=== PATIENT | female | born 1960 | race Caucasian/White ===

== ENCOUNTER 2017-10-22 09:27 | Outpatient (CLI) | payer OTHER | END 2017-10-22 09:28 | disposition home or self-care (01) | LOC: BICMAMMO 09:27 | PROVIDERS: ATTEND Family Medicine | DX: Z12.31 Encounter for screening mammogram for malignant neoplasm of breast (principal) | CPT/HCPCS: 77063; 77067 ==

== ENCOUNTER 2018-03-20 08:18 | Outpatient (CLI) | payer OTHER ==
--- NOTE | 2018-03-20 16:18 | CT ---
CT NECK WITH AND WITHOUT CONTRAST CT PARATHYROID SCAN 03/20/18 CLINICAL HISTORY: Hyperparathyroidism. No prior imaging comparisons are available. FINDINGS: There is no avidly enhancing parathyroid soft tissue nodule confirmed. There are scattered tiny nodul ar densities, regionally, favoring lymph nodes. The thyroid gland is atrophic. Coronary artery calcium is incidentally noted. There are radiopaque densities at the right hilum part ially visualized. There is incidental note of fluid density within a portion of the esophagus which m ay be related to dysmotility or reflux. Correlate clinically. If necessary, followup with barium swal low may prove useful. IMPRESSION: No CT evidence to confirm parathyroid adenoma. Follow-up Nuclear Medicine parathyroid scan may prove useful. POS: GHADA
== END 2018-03-20 08:19 | disposition home or self-care (01) ==
LOC: CT 08:18
PROVIDERS: ATTEND Specialist
DX: E21.3 Hyperparathyroidism, unspecified (principal)
CPT/HCPCS: 70492; 82565

== ENCOUNTER 2018-04-01 11:33 | Outpatient (CLI) | payer OTHER ==
--- NOTE | 2018-04-01 16:20 | NM ---
RADIONUCLIDE PARATHYROID SCAN WITH PLANAR AND SPECT CT: 04/01/18 HISTORY: Hyperparathyroidism, unspecified. RADIOPHARMACEUTICAL: 25.7 millicuries of technetium 99m - Sestamibi injected intravenously. CORRELATION: CT neck of 03/20/18. FINDINGS: There is physiologic uptake in the thyroid gland and salivary glands. No abnormal foci of tracer loca lization are seen in the neck or chest. IMPRESSION: No scintigraphic evidence of parathyroid adenoma. POS: GHADA
== END 2018-04-01 11:34 | disposition home or self-care (01) ==
LOC: NM 11:33
PROVIDERS: ATTEND Specialist
DX: E21.3 Hyperparathyroidism, unspecified (principal)
CPT/HCPCS: 78072; A9500

== ENCOUNTER 2018-05-27 13:46 | Day surgery (SDC) | payer OTHER ==
[2018-05-27] MEDS ORDERED: Denosumab 60 MG/ML SQ SCH (14:00)
[2018-05-27 14:11] VITALS: BP 145/81; TEMP 98.2
== END 2018-05-27 15:10 | disposition home or self-care (01) ==
LOC: ONC/OP 13:46
PROVIDERS: ATTEND Nurse Practitioner
DX: M81.0 Age-related osteoporosis without current pathological fracture (principal)
CPT/HCPCS: 96372; J0897

== ENCOUNTER 2018-10-23 09:36 | Outpatient (CLI) | payer OTHER | END 2018-10-23 09:37 | disposition home or self-care (01) | LOC: BICMAMMO 09:36 | PROVIDERS: ATTEND Nurse Practitioner | DX: Z12.31 Encounter for screening mammogram for malignant neoplasm of breast (principal) | CPT/HCPCS: 77063; 77067 ==

== ENCOUNTER 2018-11-27 01:13 | Day surgery (SDC) | payer OTHER ==
[2018-11-27] MEDS ORDERED: Denosumab 60 MG/ML SQ SCH (06:00)
[2018-11-27 13:09] VITALS: BP 158/76; TEMP 98.4
== END 2018-11-27 15:56 | disposition home or self-care (01) ==
LOC: ONC/OP 01:13
PROVIDERS: ATTEND Nurse Practitioner
DX: M81.0 Age-related osteoporosis without current pathological fracture (principal); Z88.1 Allergy status to other antibiotic agents; Z88.5 Allergy status to narcotic agent; Z91.018 Allergy to other foods; Z91.040 Latex allergy status
CPT/HCPCS: 96372; J0897

== ENCOUNTER 2019-05-13 07:37 | Outpatient (CLI) | payer OTHER ==
--- NOTE | 2019-05-13 11:27 | NM ---
Nuclear medicine parathyroid scintigraphy, suspect, and SPECT-CT: DATE: 05/13/2019 HISTORY: 58-year-old female with hyperparathyroidism, elevated serum PTH, but normal serum calcium. TECHNIQUE: IV injection of 26.4 mCi of technetium 99m-sestamibi.. Planar scintigraphy in 3 views of head and neck and upper chest. Axial, coronal, and sagittal SPECT of head and neck and upper chest. Noncontrast CT for anatomical localization of head and neck and upper chest. SPECT-CT fusion performed. FINDINGS: There is physiologic uptake in the parotid and submandibular glands. There is no uptake in the thyroi d bed. Thyroid gland is atrophic. No parathyroid adenoma is identified. IMPRESSION: 1. Atrophic thyroid gland. 2. No parathyroid adenoma identified.
== END 2019-05-13 07:38 | disposition home or self-care (01) ==
LOC: NM 07:37
PROVIDERS: ATTEND Specialist
DX: E21.3 Hyperparathyroidism, unspecified (principal); E03.4 Atrophy of thyroid (acquired)
CPT/HCPCS: 78072; A9500

== ENCOUNTER 2019-05-28 13:02 | Day surgery (SDC) | payer OTHER ==
[~2019-05-28 13:02] MED LIST: Denosumab 60 MG/ML SQ SCH
[2019-05-28 13:30] VITALS: BP 156/76; TEMP 97.9
== END 2019-05-28 13:30 | disposition home or self-care (01) ==
LOC: ONC/OP 13:02
PROVIDERS: ATTEND Nurse Practitioner
DX: M81.0 Age-related osteoporosis without current pathological fracture (principal)
CPT/HCPCS: 96372; J0897

== ENCOUNTER 2019-07-13 07:18 | Outpatient (CLI) | payer OTHER ==
[2019-07-13 12:33] LABS: #Eosinphils 0.1 thou/uL (0.0-0.7); #Lymphocytes 1.7 thou/uL (1.20-3.40); #Monocytes 0.5 thou/uL (0.11-0.59); #Neutrophils 3.5 thou/uL (1.40-6.50); %Basophils 0.3 % (0.0-1.0); %Eosinophils 1.8 % (0.0-10.0); %Lymphocytes 29.3 % (21.0-51.0); %Monocytes 7.8 % (0.0-10.0); %Neutrophils 60.7 % (42.0-75.0); Hemoglobin 13.6 g/dL (12.0-16.0); Mean Corpuscular HGB CONC 34.6 g/dL (32.0-36.0); Mean Platelet Volume 7.6 fL (7.4-10.4); Platelet Count 205 thou/uL (130-400); RBC Distribution Width 11.5 % (11.5-14.5); Red Blood Cell (RBC) Count 3.99 mill/uL (4.20-5.40); White Blood Cell (WBC) Count 5.7 thou/uL (4.8-10.8)
[2019-07-13 12:57] LABS: ALT (SGPT) 73 U/L (8-55); AST (SGOT) 41 U/L (5-34); Alkaline Phosphatase 128 U/L (40-110); Anion Gap 13 mmol/L (10-20); BUN (Urea Nitrogen) 13 mg/dL (9.8-20.1); Bilirubin, Direct 0.2 mg/dL (0.1-0.3); Bilirubin, Total 0.5 mg/dL (0.2-1.2); Calc. Creatinine Clearance 0 mL/min (70-130); Calcium 9.4 mg/dL (7.8-10.44); Carbon Dioxide 26 mmol/L (22-29); Chloride 108 mmol/L (98-107); Estimated GFR-MDRD 74; Globulin 2.9 g/dL (2.4-3.5); Glucose 104 mg/dL (70-105); Potassium 4.5 mmol/L (3.5-5.1); Protein, Total 6.9 g/dL (6.0-8.3); Sodium 142 mmol/L (136-145)
== END 2019-07-13 07:19 | disposition home or self-care (01) ==
LOC: LABBT 07:18
PROVIDERS: ATTEND Internal Medicine Cardiovascular Disease
DX: Z01.812 Encounter for preprocedural laboratory examination (principal); R06.09 Other forms of dyspnea
CPT/HCPCS: 80053; 80076; 85025

== ENCOUNTER 2019-07-20 07:03 | Day surgery (SDC) | payer OTHER ==
[2019-07-13 11:47] VITALS: BMI 32.4
[2019-07-20] MEDS ORDERED: Lidocaine 1% (PF) 30 ML VIAL ONE (07:58)
[2019-07-20] MEDS ORDERED: Nitroglycerin 100MG/250ML BOT 250 ML ONE (08:30)
[2019-07-20] MEDS ORDERED: Verapamil 5 MG/2 ML VIAL ONE (08:30)
[2019-07-20] MEDS ORDERED: Heparin 10,000 UNITS/1 ML VIAL ONE (08:30)
[2019-07-20] MEDS ORDERED: Nitroglycerin 4.9 GM Bottle ONE (08:55)
[2019-07-20] MEDS ORDERED: Iopamidol 370 76% 100 ML VIAL ONE (14:01)
== END 2019-07-20 14:05 | disposition home or self-care (01) ==
LOC: CCL 07:03
PROVIDERS: ATTEND Internal Medicine Cardiovascular Disease
PROC: 4A023N7 Measurement of Cardiac Sampling and Pressure, Left Heart, Percutaneous Approach (ICD-10-PCS; principal; 2019-07-20)
PROC: B2111ZZ Fluoroscopy of Multiple Coronary Arteries using Low Osmolar Contrast (ICD-10-PCS; principal; 2019-07-20)
DX: I25.10 Atherosclerotic heart disease of native coronary artery without angina pectoris (principal); E03.9 Hypothyroidism, unspecified; I10 Essential (primary) hypertension; E78.00 Pure hypercholesterolemia, unspecified; M85.80 Other specified disorders of bone density and structure, unspecified site; E66.9 Obesity, unspecified; Z68.35 Body mass index [BMI] 35.0-35.9, adult; Z79.899 Other long term (current) drug therapy; Z88.1 Allergy status to other antibiotic agents; Z88.5 Allergy status to narcotic agent; Z88.6 Allergy status to analgesic agent; Z88.8 Allergy status to other drugs, medicaments and biological substances; Z91.018 Allergy to other foods; Z98.84 Bariatric surgery status
CPT/HCPCS: 76942; 93458; C1760; C1769; J1644; J2001; Q9967

== ENCOUNTER 2019-08-27 13:15 | Outpatient (CLI) | payer OTHER ==
--- NOTE | 2019-08-27 13:34 | RAD ---
Exam:3 views right HISTORY: Puncture wound. COMPARISON: None FINDINGS: Mild bony mineralization. Lisfranc alignment is maintained. No fracture. No radiopaque fore ign body. IMPRESSION: 1. No fracture. 2. No radiopaque foreign body.
== END 2019-08-27 13:16 | disposition home or self-care (01) ==
LOC: BICRAD 13:15
PROVIDERS: ATTEND Nurse Practitioner Family
DX: S61.011A Laceration without foreign body of right thumb without damage to nail, initial encounter (principal)

== ENCOUNTER 2019-09-28 13:10 | Outpatient (CLI) | payer OTHER ==
--- NOTE | 2019-09-28 14:12 | BD ---
EXAM: Bone densitometry using DEXA HISTORY: 58 yo female. Screening for postmenopausal osteoporosis FINDINGS: L1--bone mineral density 0.746 g/sq cm; T score -2.2 ; Z score -0.9 L2--bone mineral density 0.914 g/sq cm; T score -1.0 ; Z score 0.4 L3--bone mineral density 0.939 g/sq cm; T score -1.3 ; Z score 0.2 L4--bone mineral density 0.868 g/sq cm; T score -1.8 ; Z score -0.2 Total L1-L4--bone mineral density 0.872 g/sq cm; T score -1.6 ; Z score -0.1 Left femoral neck--bone mineral density0.642; T score -1.9 ; Z score -0.6 Total proximal left femur--bone mineral density 0.732; T score -1.7 ; Z score -0.7 IMPRESSION: Osteopenia
== END 2019-09-28 13:11 | disposition home or self-care (01) ==
LOC: BICMAMMO 13:10
PROVIDERS: ATTEND Internal Medicine Endocrinology, Diabetes & Metabolism
DX: Z13.820 Encounter for screening for osteoporosis (principal); E21.1 Secondary hyperparathyroidism, not elsewhere classified; Z98.84 Bariatric surgery status; M85.89 Other specified disorders of bone density and structure, multiple sites
CPT/HCPCS: 77080

== ENCOUNTER 2020-02-01 14:05 | Outpatient (CLI) | payer OTHER ==
--- NOTE | 2020-02-01 14:45 | RAD ---
RIGHT FOOT 3 VIEWS: Date: 02/01/2020 HISTORY: Injury, right foot pain. FINDINGS/IMPRESSION: No acute fracture or dislocation is seen. Calcaneal spurs are present. POS: CORDELL
== END 2020-02-01 14:06 | disposition home or self-care (01) ==
LOC: SCSRAD 14:05
PROVIDERS: ATTEND Nurse Practitioner Family
DX: M79.671 Pain in right foot (principal); M77.31 Calcaneal spur, right foot

== ENCOUNTER 2020-07-20 10:52 | Outpatient (CLI) | payer OTHER ==
--- NOTE | 2020-07-20 13:12 | MMO ---
Bilateral MAMMO Bilat Screen [facility]. CLINICAL HISTORY: Patient is 59 years old and is seen for screening. The patient has no family history of breast cancer. The patient has no personal history of cancer. The patient has a history of bilateral Breast reduction in . VIEWS: The views performed were: bilateral craniocaudal with tomosynthesis and bilateral mediolateral oblique with tomosynthesis. FILMS COMPARED: The present examination has been compared to prior imaging studies performed at [facility] on 10/22/2017 and 10/23/2018, and at [facility] on 09/06/2015 and 09/19/2016. This study has been interpreted with the assistance of computer-aided detection. MAMMOGRAM FINDINGS: There are scattered fibroglandular densities. There are stable benign appearing calcifications seen in both breasts. There are no suspicious masses, suspicious calcifications, or new areas of architectural distortion. IMPRESSION: THERE IS NO MAMMOGRAPHIC EVIDENCE OF MALIGNANCY. A ROUTINE FOLLOW-UP MAMMOGRAM IN 1 YEAR IS RECOMMENDED. THE RESULTS OF THIS EXAM WERE SENT TO THE PATIENT. ACR BI-RADS Category 2 - Benign finding MAMMOGRAPHY NOTE: 1. A negative mammogram report should not delay a biopsy if a dominant of clinically suspicious mass is present. 2. Approximately 10% to 15% of breast cancers are not detected by mammography. 3. Adenosis and dense breasts may obscure an underlying neoplasm. Reported by: MARGRET LEON MD Electonically Signed: [id number]
== END 2020-07-20 10:53 | disposition home or self-care (01) ==
LOC: BICMAMMO 10:52
PROVIDERS: ATTEND Nurse Practitioner
DX: Z12.31 Encounter for screening mammogram for malignant neoplasm of breast (principal); Z91.89 Other specified personal risk factors, not elsewhere classified
CPT/HCPCS: 77063; 77067

== ENCOUNTER 2021-07-28 12:22 | Outpatient (CLI) | payer OTHER | END 2021-07-28 12:23 | disposition home or self-care (01) | LOC: BICMAMMO 12:22 | PROVIDERS: ATTEND Nurse Practitioner | DX: Z12.31 Encounter for screening mammogram for malignant neoplasm of breast (principal); Z98.890 Other specified postprocedural states | CPT/HCPCS: 77063; 77067 ==

== ENCOUNTER 2021-08-07 12:17 | Outpatient (CLI) | payer OTHER ==
[2021-08-07 13:44] LABS: #Basophils 0.1 10x3/uL (0.0-0.2); #Eosinphils 0.1 10x3/uL (0.0-0.5); #Monocytes 0.4 10x3/uL (0.0-1.1); #Neutrophils 3.7 10x3/uL (1.5-8.4); %Eosinophils 1.9 % (0.0-6.0); %Lymphocytes 25.9 % (18.0-47.0); %Monocytes 7.4 % (0.0-10.0); %Neutrophils 63.5 % (40.0-75.0); Hemoglobin 12.2 g/dL (12.0-15.5); Mean Corpuscular HGB CONC 31.6 g/dL (32.0-36.0); Mean Corpuscular Hemoglobin 31.9 pg (27.0-33.0); Mean Platelet Volume 10.6 fl (7.4-10.4); Platelet Count 237 10x3/uL (150-450); RBC Distribution Width 12.9 % (11.5-14.5); Red Blood Cell (RBC) Count 3.82 10x6/uL (3.90-5.03); White Blood Cell (WBC) Count 5.8 10x3/uL (3.5-10.5)
[2021-08-07 13:59] LABS: Anion Gap 12 mmol/L (10-20); BUN (Urea Nitrogen) 15 mg/dL (9.8-20.1); Calc. Creatinine Clearance 0 mL/min (70-130); Calcium 9.6 mg/dL (7.8-10.44); Carbon Dioxide 25 mmol/L (23-31); Chloride 109 mmol/L (98-107); Glucose 128 mg/dL (80-115); Potassium 4.3 mmol/L (3.5-5.1); Sodium 142 mmol/L (136-145)
[2021-08-07 23:45] LABS: SARS-CoV-2 PCR by NAA Not Detected (NotDetected)
== END 2021-08-07 12:18 | disposition home or self-care (01) ==
LOC: LABBT 12:17
PROVIDERS: ATTEND Specialist
DX: Z01.818 Encounter for other preprocedural examination (principal); Z20.822 Contact with and (suspected) exposure to COVID-19
CPT/HCPCS: 80048; 85025; 93005; 93010; U0003; U0005

== ENCOUNTER 2021-08-10 07:10 | Day surgery (SDC) | payer OTHER ==
[2021-08-09 11:13] VITALS: BMI 31.4
[2021-08-10] MEDS ORDERED: Acetaminophen 500 MG TAB ONE (08:00)
[2021-08-10] MEDS ORDERED: ceFAZolin 2 GM/DEX 5% 100 ML BAG ONE (08:00)
[2021-08-10] MEDS ORDERED: Ketorolac Tromethamine 30 MG/ML VIAL ONE (08:01)
[2021-08-10] MEDS ORDERED: Midazolam HCl 2 mg/2 ml Vial ONE (09:03)
[2021-08-10] MEDS ORDERED: Ketamine 50 MG/ML (10ML VIAL) ONE (09:08)
[2021-08-10] MEDS ORDERED: Fentanyl 100 MCG/2 ML VIAL ONE ×3 (09:08→11:16)
[2021-08-10] MEDS ORDERED: Lidocaine 1% w/Epinephrine 1:100K 20 ML VIAL ONE (09:11)
[2021-08-10] MEDS ORDERED: Bupivacaine 0.25% HCL 30 ML VIAL ONE (09:11)
[2021-08-10] MEDS ORDERED: ePHEDrine 50 MG/ML VIAL ONE (09:22)
[2021-08-10] MEDS ORDERED: Glycopyrrolate 0.2 MG/ML 5 ML SYRINGE ONE (09:22)
[2021-08-10] MEDS ORDERED: PROPOFOL 200 MG/20 ML VIAL ONE (09:22)
[2021-08-10] MEDS ORDERED: Rocuronium Bromide 10 MG/ML (10ML VIAL) ONE (09:22)
[2021-08-10] MEDS ORDERED: Lidocaine 1% PF 5 ML VIAL ONE (09:22)
[2021-08-10] MEDS ORDERED: Dexamethasone 20 MG/5 ML VIAL ONE (09:22)
[2021-08-10] MEDS ORDERED: Ondansetron PF 4 MG/2 ML Vial ONE (09:22)
[2021-08-10] MEDS ORDERED: HYDROcodone/Acetaminophen 5/325 mg Tablet ONE (12:50)
== END 2021-08-10 13:05 | disposition home or self-care (01) ==
LOC: SDC 07:10
PROVIDERS: ATTEND Specialist
PROC: 0WUF4JZ Supplement Abdominal Wall with Synthetic Substitute, Percutaneous Endoscopic Approach (ICD-10-PCS; principal; 2021-08-10)
DX: K43.9 Ventral hernia without obstruction or gangrene (principal); M62.08 Separation of muscle (nontraumatic), other site; G47.33 Obstructive sleep apnea (adult) (pediatric); E03.9 Hypothyroidism, unspecified; K21.9 Gastro-esophageal reflux disease without esophagitis; I25.10 Atherosclerotic heart disease of native coronary artery without angina pectoris; M81.0 Age-related osteoporosis without current pathological fracture; J45.909 Unspecified asthma, uncomplicated; Z79.899 Other long term (current) drug therapy; Z88.1 Allergy status to other antibiotic agents; Z88.5 Allergy status to narcotic agent; Z88.8 Allergy status to other drugs, medicaments and biological substances; Z88.6 Allergy status to analgesic agent; Z91.040 Latex allergy status; Z91.018 Allergy to other foods; Z98.84 Bariatric surgery status
CPT/HCPCS: C1781; J1100; J1885; J2250; J2405; J2704; J3010; J3490; S0020

== ENCOUNTER 2022-03-21 12:24 | Outpatient (CLI) | payer OTHER | END 2022-03-21 12:25 | disposition home or self-care (01) | LOC: BICMAMMO 12:24 | PROVIDERS: ATTEND Nurse Practitioner | DX: M81.8 Other osteoporosis without current pathological fracture (principal); E21.3 Hyperparathyroidism, unspecified | CPT/HCPCS: 77080 ==

== ENCOUNTER 2022-04-02 08:37 | Outpatient (CLI) | payer OTHER | END 2022-04-02 08:38 | disposition home or self-care (01) | LOC: NM 08:37 | PROVIDERS: ATTEND Specialist | DX: E21.3 Hyperparathyroidism, unspecified (principal) | CPT/HCPCS: 78072; A9500 ==

== ENCOUNTER 2022-05-01 08:53 | Outpatient (CLI) | payer OTHER ==
[2022-05-01] MEDS ORDERED: Iopamidol-370 76% 500 ML 1 ML ONE (11:40)
== END 2022-05-01 08:54 | disposition home or self-care (01) ==
LOC: BICCT 08:53
PROVIDERS: ATTEND Specialist
DX: E21.3 Hyperparathyroidism, unspecified (principal); E04.1 Nontoxic single thyroid nodule
CPT/HCPCS: 70492; 82565; Q9967

== ENCOUNTER 2022-05-22 17:30 | Outpatient (CLI) | payer OTHER | END 2022-05-22 17:31 | disposition home or self-care (01) | LOC: SLEEPLAB 17:30 | PROVIDERS: ATTEND Specialist | DX: G47.9 Sleep disorder, unspecified (principal); K21.9 Gastro-esophageal reflux disease without esophagitis; I10 Essential (primary) hypertension; I25.10 Atherosclerotic heart disease of native coronary artery without angina pectoris; F32.A Depression, unspecified; R53.83 Other fatigue; R06.83 Snoring; G47.00 Insomnia, unspecified | CPT/HCPCS: 95800 ==

== ENCOUNTER 2022-10-02 12:27 | Outpatient (CLI) | payer OTHER | END 2022-10-02 12:28 | disposition home or self-care (01) | LOC: BICMAMMO 12:27 | PROVIDERS: ATTEND Nurse Practitioner | DX: Z12.31 Encounter for screening mammogram for malignant neoplasm of breast (principal); R92.1 Mammographic calcification found on diagnostic imaging of breast; Z98.890 Other specified postprocedural states | CPT/HCPCS: 77063; 77067 ==

== ENCOUNTER 2023-06-18 08:02 | Outpatient (CLI) | payer OTHER | END 2023-06-18 08:03 | disposition home or self-care (01) | LOC: NM 08:02 | PROVIDERS: ATTEND Student in an Organized Health Care Education/Training Program | DX: E21.3 Hyperparathyroidism, unspecified (principal) | CPT/HCPCS: 78072; A9500 ==

== ENCOUNTER 2023-12-13 09:18 | Outpatient (CLI) | payer MEDICARE, OTHER | END 2023-12-13 09:19 | disposition home or self-care (01) | LOC: BICMAMMO 09:18 | PROVIDERS: ATTEND Nurse Practitioner | DX: Z12.31 Encounter for screening mammogram for malignant neoplasm of breast (principal); Z98.890 Other specified postprocedural states | CPT/HCPCS: 77063; 77067 ==

== ENCOUNTER 2024-11-11 09:59 | Outpatient (CLI) | payer MEDICARE, OTHER | END 2024-11-11 10:00 | disposition home or self-care (01) | LOC: BICMAMMO 09:59 | PROVIDERS: ATTEND Internal Medicine Rheumatology | DX: M81.8 Other osteoporosis without current pathological fracture (principal); M85.89 Other specified disorders of bone density and structure, multiple sites | CPT/HCPCS: 77080 ==

== ENCOUNTER 2025-08-03 07:40 | Outpatient (CLI) | payer MEDICARE, OTHER | END 2025-08-03 07:41 | disposition home or self-care (01) | LOC: MRI 07:40 | PROVIDERS: ATTEND Physician Assistant Medical | DX: R10.13 Epigastric pain (principal); K83.8 Other specified diseases of biliary tract; R79.89 Other specified abnormal findings of blood chemistry; Z98.84 Bariatric surgery status; K76.0 Fatty (change of) liver, not elsewhere classified; K86.89 Other specified diseases of pancreas | CPT/HCPCS: 76376; S8037; 74183 ==

== ENCOUNTER 2025-09-08 07:30 | Day surgery (SDC) | payer MEDICARE, OTHER ==
[2025-09-08 07:55] LABS: #Basophils 0.04 10x3/uL (0.0-0.2); #Eosinophils 0.12 10x3/uL (0.0-0.7); #Monocytes 0.37 10x3/uL (0.11-0.59); #Neutrophils 2.68 10x3/uL (1.40-6.50); %Basophils 0.9 % (0.0-1.0); %Eosinophils 2.6 % (0.0-10.0); %Lymphocytes 29.8 % (21.0-51.0); %Monocytes 8.1 % (0.0-10.0); %Neutrophils 58.4 % (42.0-75.0); Hematocrit 37.2 % (36.0-47.0); Hemoglobin 11.9 g/dL (12.0-16.0); Mean Corpuscular Hemoglobin 32.2 pg (27.0-31.0); Mean Corpuscular Volume 100.5 fL (78.0-98.0); Platelet Count 239 10x3/uL (130-400); Red Blood Cell (RBC) Count 3.70 mill/uL (4.20-5.40); White Blood Cell (WBC) Count 4.59 10x3/uL (4.8-10.8)
[2025-09-08 08:13] LABS: INR-International Normal Ratio 1.1; PTT 31.3 sec (22.9-36.1); Prothrombin Time 14.2 sec (12.0-14.7)
[2025-09-08] MEDS ORDERED: Lidocaine 1% w/Epinephrine 1:100K 20 ML VIAL ONE (09:10)
[2025-09-08] MEDS ORDERED: Sodium Bicarbonate 2.5 MEQ/5 ML SDV ONE (09:10)
== END 2025-09-08 13:22 | disposition home or self-care (01) ==
LOC: ULT 07:30
PROVIDERS: ATTEND Physician Assistant Medical
PROC: 0FD03ZX Extraction of Liver, Percutaneous Approach, Diagnostic (ICD-10-PCS; principal; 2025-09-08)
DX: K75.81 Nonalcoholic steatohepatitis (NASH) (principal); K83.8 Other specified diseases of biliary tract; Z91.040 Latex allergy status; Z91.0110 Allergy to milk products, unspecified; Z88.8 Allergy status to other drugs, medicaments and biological substances; Z88.5 Allergy status to narcotic agent; Z88.6 Allergy status to analgesic agent; Z91.018 Allergy to other foods; Z91.048 Other nonmedicinal substance allergy status
CPT/HCPCS: 36000; 47000; 76942; 85025; 85610; 85730; J2250; 88307; 88313; 99152; 99153; J3010